=== PATIENT | female | born 1970 ===

== ENCOUNTER 2017-02-09 12:25 | Emergency (ER) | payer OTHER ==
[2017-02-09 12:33] VITALS: BP 134/74
--- NOTE | 2017-02-09 13:04 | RAD ---
Indication: Patellar region pain post fall. Comparison: May 20, 2004 LEFT femur exam Technique: LEFT knee: AP, tunnel, lateral, sunrise views. Report: Negative for effusion. Normal alignment and preserved joint spaces. Negative for fracture. Unremarkable soft tissue contours. IMPRESSION: Negative exam.
--- NOTE | 2017-02-09 13:24 | UC ---
Mihai Morales Aidan, scribed for Jaylan Caceres MD on 02/09/17 at 1249 . 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 The pain is localized in her knee cap. Bending the left knee aggravates her pain. Associated symptoms include abrasions to the elbows bilaterally. Pt denies any previous knee injuries. - History of Current Complaint Chief Complaint: UCLowerExtremity Stated Complaint: KNEE AND ELBOW INJURY Time Seen by Provider: 02/09/17 12:33 Hx Obtained From: Patient Hx Last Menstrual Period: 11/2016 ?: No Onset/Duration: Sudden Onset, Lasting Minutes, Still Present Severity Initially: Moderate Severity Currently: Moderate Location Of Injury: left knee cap Pain Intensity: 7 Pain Scale Used: 0-10 Numeric Character: Sharp Aggravating Factor(s): Movement - bending the left knee aggravates pain Alleviating Factor(s): Nothing - unknown Associated Signs And Symptoms: Negative: Negative - abrasions to elbows bilaterally Able to Bear Weight: Yes - Allergies/Home Medications Allergies/Adverse Reactions: Allergies Allergy/AdvReac Type Severity Reaction Status Date / Time No Known Allergies Allergy Verified 08/14/13 13:49 PMH/Surg Hx/FS Hx/Imm Hx - Surgical History Surgical History: Yes Surgery Procedure, Year, and Place: 2 C Sections - Family History Known Family History: Positive: Hypertension - Social History Occupation: Unemployed Lives: Alone Alcohol Use: None Substance Use Type: None Smoking Status (MU): Heavy Every Day Tobacco Smoker Review of Systems Constitutional: Negative Skin: Other - abrasions to elbows Eyes: Negative ENT: Negative Respiratory: Negative Cardiovascular: Negative Gastrointestinal: Negative Genitourinary: Negative Motor: Negative Neurovascular: Negative Musculoskeletal: Arthralgia - left knee pain Neurological: Negative Psychological: Negative All Other Systems Reviewed And Are Negative: Yes Physical Exam Triage Information Reviewed: Yes Appearance: Well-Appearing, No Pain Distress Vital Signs: Initial Vital Signs Temp 98.4 F 02/09/17 12:27 Pulse 89 02/09/17 12:27 Resp 16 02/09/17 12:27 BP 134/74 02/09/17 12:27 Pulse Ox 100 02/09/17 12:27 Vital Signs Reviewed: Yes Eye Exam: Normal Eyes: Positive: Other: - EOMI, PERRL ENT Exam: Normal ENT: Positive: Normal ENT inspection Neck exam: Normal Neck: Positive: Supple, Nontender Respiratory Exam: Normal Respiratory: Positive: Lungs clear - CTA, Other: - breath sounds present Cardiovascular Exam: Normal Cardiovascular: Positive: RRR Abdominal Exam: Normal Abdomen Description: Positive: Nontender, Soft Bowel Sounds: Positive: Present Musculoskeletal Exam: Normal Musculoskeletal: Positive: Strength Intact, ROM Intact, Other: - right knee is normal, left knee is tender to palpation of the patella, no skin break, stable to exam, negative McMurrys, Negative anterior draw Neurological Exam: Normal Neurological: Positive: Alert Psychological Exam: Normal Psychological: Positive: Age Appropriate Behavior Skin Exam: Normal Skin: Positive: Other - abrasions on both elbows Diagnostics - Radiology KNEE X-RAY Xray Interpretation: No Acute Changes - IMPRESSION: Negative examination Radiology Interpretation Completed By: Radiologist Knee Pain Course/Dx - Course Course Of Treatment: 46 y/o female presents with left knee pain S/P a mechanical fall onto her knees and elbows. She has abrasions to her elbows bilaterally. Medications and imaging reviewed. - Differential Dx/Diagnosis Provider Diagnoses: LEFT KNEE SPRAIN/CONTUSION. B/L ELBOW ABRASIONS. Discharge - Discharge Plan Condition: Stable Disposition: HOME Patient Education Materials: Knee Sprain (ED), Knee Pain (ED), Abrasion (ED) Referrals: No Primary Care Phys,NOPCP [Primary Care Provider] - [facility] PH[facility]IAN REFERRAL [Outside] Additional Instructions: FOLLOW UP WITH YOUR DOCTOR. RETURN TO THE EMERGENCY DEPARTMENT FOR ANY WORSENING OF YOUR CONDITION OR QUESTIONS OR CONCERNS. The documentation as recorded by the Mihai miner Aidan accurately reflects the service I personally performed and the decisions made by me, Jaylan Caceres MD.
== END 2017-02-09 13:40 | disposition home or self-care (01) ==
LOC: UCEAST 12:25
DX: S83.92XA Sprain of unspecified site of left knee, initial encounter (principal); W18.30XA Fall on same level, unspecified, initial encounter; Y93.9 Activity, unspecified; Y92.9 Unspecified place or not applicable; Y99.9 Unspecified external cause status; S80.02XA Contusion of left knee, initial encounter; S50.312A Abrasion of left elbow, initial encounter; S50.311A Abrasion of right elbow, initial encounter; Z72.0 Tobacco use
CPT/HCPCS: 99201; G0463

== ENCOUNTER 2019-11-24 14:05 | Emergency (ER) | payer OTHER ==
--- NOTE | 2019-11-24 14:23 | ED ---
Neurological HPI - HPI Summary HPI Summary: 49 y/o F brought to [facility] by her mother for headache and chest pain. Patient has had headache intermittently for 1 week. Patient complaining of headache yesterday in her room. Mother saw patient around dinner time last night. Last known well 2100 yesterday. This morning, mother went to get patient, noted that patient was weak, brought patient here. Patient complaining of headache now. She reports nausea/vomiting, left upper extremity weakness and tingliness, right sided neck pain. No left lower extremity weakness. Left facial droop noted. Symptoms aggravated and alleviated by nothing. Patient states she hit her head slightly this morning Medications reviewed. Not on anticoagulants. 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 Onset/Duration: Still Present Timing: Constant Alleviating: Nothing Associated Signs and Symptoms: Positive: Nothing - Allergy/Home Medications Allergies/Adverse Reactions: Allergies Allergy/AdvReac Type Severity Reaction Status Date / Time morphine Allergy Itching Verified 11/24/19 14:48 Home Medications: Home Medications Unobtainable 11/24/19 [History Confirmed 11/24/19] PMH/Surg Hx/FS Hx/Imm Hx Endocrine/Hematology History: Denies: Hx Diabetes, Hx Thyroid Disease Cardiovascular History: Denies: Hx Hypertension Respiratory History: Denies: Hx Asthma, Hx Chronic Obstructive Pulmonary Disease (COPD) - Surgical History Surgery Procedure, Year, and Place: 2 C Sections Infectious Disease History: Denies: Hx Clostridium Difficile, Hx Hepatitis, Hx Human Immunodeficiency Virus (HIV), Hx of Known/Suspected MRSA, Hx Shingles, Hx Tuberculosis, Hx Known/ Suspected VRE, Hx Known/Suspected VRSA, History Other Infectious Disease, Traveled Outside the [place] in Last 30 Days - Family History Known Family History: Positive: Hypertension - Social History Alcohol Use: None Hx Substance Use: No Substance Use Type: Reports: None Hx Tobacco Use: Yes Smoking Status (MU): Heavy Every Day Tobacco Smoker Review of Systems Positive: Chest Pain Positive: Vomiting, Nausea Positive: Other - right sided neck pain Neurological/Mental Status: Negative - left lower extremity weakness, Other - left upper extremity weakness and tingliness, left facial droop Positive: Headache All Other Systems Reviewed And Are Negative: Yes Physical Exam - Summary Physical Exam Summary: Constitutional: Well-developed, Well-nourished, Alert. (-) Distressed Skin: Warm, Dry HENT: Normocephalic; Atraumatic, L sided facial droop Eyes: Conjunctiva normal, right pupil 4-mm, left pupil 3-mm Neck: Musculoskeletal ROM normal neck. (-) JVD, (-) Stridor, (-) Nuchal rigidity Cardio: Rhythm regular, rate normal, Heart sounds normal; Intact distal pulses; Radial pulses are 2+ and symmetric. (-) Murmur Pulmonary/Chest wall: Effort normal. (-) Respiratory distress, (-) Wheezes, (-) Rales Abd: Soft, (-) tenderness, (-) Distension, (-) Guarding, (-) Rebound Musculoskeletal: (-) Edema Lymph: (-) Cervical adenopathy Neuro: Alert, oriented x3. Left sided facial droop, 4/5 strength L arm, 5/5 strength R arm and BLE, decreased sensation to the left upper extremity. GCS 15. +Dysarthria Psych: Deferred Triage Information Reviewed: Yes Vital Signs Reviewed: Yes Procedures - Sedation Patient Received Moderate/Deep Sedation with Procedure: No Diagnostics - Laboratory Result Diagrams: 11/24/19 14:32 11/24/19 14:32 Lab Statement: Any lab studies that have been ordered have been reviewed, and results considered in the medical decision making process. - CT BRAIN CT Interpretation Completed By: Radiologist - IMPRESSION: #. Solitary 4.4 cm AP by 3.9 cm transverse by 4.3 cm cephalocaudal intra-axial hematoma centered at the RIGHT temporal lobe and basal ganglia with resulting RIGHT side sulcal effacement, compression of the RIGHT lateral ventricle, and up to 0.6 cm RIGHT to LEFT midline shift at the level of the septum pellucidum. Associated moderate dilatation of the LEFT lateral ventricle with the atrium measuring 1.9 cm transverse. Associated trace regional subarachnoid hemorrhage. Peripheral rind of parenchymal edema surrounding the hematoma. #. Results discussed with Dr. Burroughs 11/24/2019 2:35 PM EDT. ED physician has reviewed this imaging report. - EKG 1411 Cardiac Rate: NL - 93 BPM EKG Rhythm: Sinus Rhythm Summary of EKG Findings: An EKG at 1411 reveals normal sinus rhythm 93 BPM. T wave inversions in V1, V2, V3. No STEMI. No acute changes. ED physician has reviewed and interpreted this EKG. NIH Scale - NIH Scale Level of Consciousness: Responds to Minor Stimulation Ask Patient the Month and His/Her Age: Both Correct Ask Pt to Open/Close Eyes and Net Web Application Developer/Release Non-Paretic Hand: Both Correctly Best Gaze (Only Horizontal Eye Movement): Normal Visual Field Testing: No Visual Loss Facial Paresis-Pt to Smile & Close Eyes or Grimace Symmetry: Partial Paralysis Motor Function - Right Arm: No Drift-Holds 10 Seconds Motor Function - Left Arm: Drifts LT 10 seconds Motor Function - Right Leg: No Drift-Holds 10 Seconds Motor Function - Left Leg: No Drift-Holds 10 Seconds Limb Ataxia-Must be out of Proportion to Weakness Present: Absent Sensory (Use Pinprick to Test Arms/Legs/Trunk/Face): Pinprick Less on Affected Best Language (Describe Picture, Name Items): Some Loss Dysarthria (Read Several Words): Slurs Some Words Extinction and Inattention: No Abnormality Total Score: 7 Re-Evaluation - Re-Evaluation First Eval Re-Evaluation Time: 14:23 - transfer to [facility] initiated for neuro ICU Second Eval Re-Evaluation Time: 14:34 - radiologist called to report CT Brain findings Third Eval Re-Evaluation Time: 14:45 - called Transfer Center for an update Fourth Eval Re-Evaluation Time: 14:58 - Dr. Maldonado, neuro ICU at [facility], agrees to accept patient Course/Dx - Course Course Of Treatment: 49 y/o F w no significant PMH p/w headache, weakness and nausea. - PE w L sided facial weakness, arm weakness. NIHSS 7. LKW >12 hours ago. Stat head CT shows 4 cm temporal/BG bleed. Given 1 g keppra. Transfer initiated to [facility] for Neuro ICU/NSGY (no NSGY decontamination worker today). Accepted by Dr. Maldonado. Updated mother on plan for transfer. - Diagnoses Provider Diagnoses: Hemorrhagic cerebrovascular accident (CVA), Facial droop due to stroke - Critical Care Time Critical Care Time: 30-74 min - Upon my evaluation, this patient had a high probability of imminent or life-threatening deterioration due to CVA which required my direct attention, intervention, and personal management. I have personally provided 55 minutes of critical care time exclusive of time spent on separately billable procedures. Time includes review of laboratory data, radiology results, discussion with consultants, and monitoring for potential decompensation. Interventions were performed as documented above. Discharge ED - Sign-Out/Discharge Documenting (check all that apply): Patient Departure - Discharge Plan Condition: Stable Disposition: TRANS HIGHER LVL OF CARE FAC Referrals: No Primary Care Phys,NOPCP [Primary Care Provider] - - Billing Disposition and Condition Condition: STABLE Disposition: Trans Higher Lvl of Care Fac - Attestation Statements Document Initiated by Scribe: Yes Documenting Scribe: Ofelia Siddiqui Provider For Whom Stevan is Documenting (Include Credential): Poonam Burroughs MD Scribe Attestation: IOfelia, scribed for Poonam Burroughs MD on 11/24/19 at 1505. Scribe Documentation Reviewed: Yes Provider Attestation: The documentation as recorded by the scribeOfelia accurately reflects the service I personally performed and the decisions made by me, Poonam Burroughs MD Status of Scribe Document: Viewed
[2019-11-24] MEDS ORDERED: levETIRAcetam 1000MG IVPREMIX* 1,000 MG/100 ML BAG IVPB ONE (14:24)
[2019-11-24] MEDS: Morphine 4 MG/ML VIAL (1 ml) 4 MG/ML VIAL IV ONE ×2 (14:46→14:56)
[2019-11-24] MEDS ORDERED: fentaNYL* 50 MCG/ML 2 ML VIAL (100 MCG VIAL) IV SLOW PU ONE (14:50)
[2019-11-24] MEDS ORDERED: Ondansetron INJ* 2 MG/ML VIAL IV ONE (14:50)
[2019-11-24 15:02] LABS: Albumin 4.2 g/dL (3.2-5.2); Albumin/Globulin Ratio 1.2 (1-3); BUN/Creatinine Ratio 41.3 (8-20); Calcium 10.6 mg/dL (8.6-10.3); EGFR African American 99.4 (>60); EGFR Non-African American 82.1 (>60); Globulin 3.6 g/dL (2-4); Potassium 3.4 mmol/L (3.5-5.0); Total Protein 7.8 g/dL (6.4-8.9)
[2019-11-24 15:05] LABS: ABS Basophils 0.1 10^3/ul (0-0.2); ABS Lymphocytes 1.8 10^3/ul (1.0-4.8); ABS Monocytes 0.8 10^3/ul (0-0.8); ABS Neutrophils 10.9 10^3/ul (1.5-7.7); Hematocrit 46 % (35-47); Hemoglobin 16.5 g/dL (12.0-16.0); INR 1.1 (0.82-1.09); Lymphocyte % 13.1 %; Mean Corpuscular HGB Conc 36 g/dL (31-36); Mean Corpuscular Hemoglobin 33 pg (27-31); Mean Corpuscular Volume 93 fL (80-97); Mean Platelet Volume 8.5 fL (7.4-10.4); Nucleated Red Blood Cells % 0.1; Platelet Count 258 10^3/uL (150-450); Red Blood Count 4.95 10^6 /uL (3.70-4.87); Red Cell Distribution Width 15 % (10-15); White Blood Count 13.5 10^3/uL (3.5-10.8)
[2019-11-24] MEDS ORDERED: Labetalol IV* 5 MG/ML 20 ML VIAL IV PUSH ONE ×2 (15:15→15:48)
[2019-11-24 16:16] VITALS: BP 128/86
== END 2019-11-24 16:12 | disposition short-term general hospital (02) ==
LOC: ED 14:05
DX: I63.9 Cerebral infarction, unspecified (principal); R29.810 Facial weakness; F17.200 Nicotine dependence, unspecified, uncomplicated; Z88.5 Allergy status to narcotic agent
CPT/HCPCS: 36415; 70450; 80053; 85025; 85610; 93005; 96365; 96375; 96376; 99285; J1953; J2270; J2405; J3010